=== PATIENT | male | born 2000 | race Two or more races ===

== ENCOUNTER 2024-01-08 17:26 | Emergency (ER) | payer OTHER ==
[~2024-01-08] VITALS: Ht 175.3 cm; Wt 96.2 kg
[2024-01-08] MEDS ORDERED: IBUP-1953 PO (20:27)
[2024-01-08 20:41] VITALS: BP 128/72; TEMP 98; O2SAT 98
== END 2024-01-08 20:41 | disposition home or self-care (01) ==
LOC: ER 17:32
DX: M54.6 Pain in thoracic spine (principal); M54.2 Cervicalgia; R51.9 Headache, unspecified; W20.8XXA Other cause of strike by thrown, projected or falling object, initial encounter; Y92.89 Other specified places as the place of occurrence of the external cause; Y93.89 Activity, other specified; Y99.0 Civilian activity done for income or pay
CPT/HCPCS: 70450-TC; 72040-TC; 72070-TC; 72128-TC